=== PATIENT | female | born 1955 | race Caucasian/White ===

== ENCOUNTER 2018-01-20 00:21 | Emergency (ER) | payer MEDICAID ==
[~2018-01-20] VITALS: Ht 165.1 cm; Wt 86.2 kg
[2018-01-20 00:32] VITALS: Ht 165.1 cm; Wt 86.2 kg
[2018-01-20 01:13] LABS: BASOPHIL % 0.7 % (0-2); PLATELET COUNT 288 x10^3mcL (130-400); RED CELL DISTRIBUTION WIDTH 13.4 % (11.5-14.5)
[2018-01-20 01:32] LABS: CALCIUM 8.6 mg/dL (8.5-10.1); CARBON DIOXIDE 26.4 mmol/L (21-32); CHLORIDE SERUM 104 mmol/L (98-107); CREATININE SERUM 0.7 mg/dL (0.6-1.0); GFR1 > 60 mL/min; GLUCOSE SERUM 125 mg/dL (74-106); POTASSIUM SERUM 3.3 mmol/L (3.5-5.1); SODIUM SERUM 142 mmol/L (136-145)
[2018-01-20 01:43] LABS: ALBUMIN 3.6 g/dL (3.4-5.0); ALKALINE PHOSPHATASE 58 U/L (46-116); ALT/SGPT 21 U/L (14-59); AST/SGOT 7 U/L (15-37); BILIRUBIN TOTAL 0.27 mg/dL (0.20-1.00); TOTAL PROTEIN, SERUM 6.6 g/dL (6.4-8.2)
[2018-01-20 03:14] VITALS: BP 156/83
== END 2018-01-20 03:14 | disposition home or self-care (01) ==
LOC: ED 00:21
PROVIDERS: Emergency Medicine
DX: R07.89 Other chest pain (principal); E03.9 Hypothyroidism, unspecified
CPT/HCPCS: J7030; Q0092

== ENCOUNTER 2018-01-31 04:23 | Inpatient (IN) | payer MEDICAID ==
[~2018-01-31] VITALS: Ht 162.6 cm; Wt 88.5 kg
[2018-01-31 05:21] LABS: BASOPHIL % 0.4 % (0-2); PLATELET COUNT 238 x10^3mcL (130-400); RED CELL DISTRIBUTION WIDTH 14.3 % (11.5-14.5)
[2018-01-31 05:27] LABS: OSMOLALITY SERUM 293 mOsm/kg (278-298)
[2018-01-31 05:43] LABS: ALBUMIN 3.5 g/dL (3.4-5.0); ALKALINE PHOSPHATASE 62 U/L (46-116); ALT/SGPT 22 U/L (14-59); AST/SGOT 14 U/L (15-37); BILIRUBIN TOTAL 0.4 mg/dL (0.20-1.00); CALCIUM 8.2 mg/dL (8.5-10.1); CARBON DIOXIDE 26.3 mmol/L (21-32); CHLORIDE SERUM 107 mmol/L (98-107); CREATININE SERUM 0.8 mg/dL (0.6-1.0); GFR1 > 60 mL/min; GLUCOSE SERUM 140 mg/dL (74-106); LIPASE 137 IU/L (73-393); MAGNESIUM 1.9 mg/dL (1.8-2.4); SODIUM SERUM 141 mmol/L (136-145); TOTAL PROTEIN, SERUM 6.5 g/dL (6.4-8.2)
[2018-01-31 06:18] LABS: microscopic required? NO
[2018-01-31 08:03] LABS: UA SPECIFIC GRAVITY <=1.005 (1.005-1.035); urine erythrocyte NEGATIVE (NEGATIVE)
[2018-01-31 08:13] LABS: T3 TOTAL 1.18 ng/mL
[2018-01-31 08:23] LABS: AMPHETAMINE QUAL UR NONE DETECTED (NEG <=1000)
[2018-01-31 08:26] LABS: CHOLESTEROL/HDL RATIO 3.3; PHOSPHOROUS 2.8 mg/dL (2.5-4.9)
[2018-01-31 08:31] LABS: FREE T4 0.93 ng/dL (0.76-1.46); FREE THYROXINE INDEX 2.7 ug/dL (1.4-4.5); T4(THYROXINE) 7.8 ug/dL (4.7-13.3)
[2018-01-31 09:58] VITALS: BP 144/78
[2018-01-31 14:14] VITALS: BP 133/70
[2018-01-31 17:27] VITALS: BP 142/70
[2018-01-31 21:09] VITALS: BP 160/66
== END 2018-01-31 22:51 | disposition left against medical advice (07) | DRG 756 ==
LOC: ED 04:23 → DU 06:31
PROVIDERS: Emergency Medicine; Family Medicine
DX: F41.9 Anxiety disorder, unspecified (principal); E87.2 Acidosis; F43.0 Acute stress reaction; I16.0 Hypertensive urgency; R73.03 Prediabetes; E87.6 Hypokalemia; E89.0 Postprocedural hypothyroidism; E78.5 Hyperlipidemia, unspecified; Z53.29 Procedure and treatment not carried out because of patient's decision for other reasons; Z63.4 Disappearance and death of family member; Z68.33 Body mass index [BMI] 33.0-33.9, adult
CPT/HCPCS: 83880; 84439; G0480; J7030; Q0092